=== PATIENT | male | born 2000 | race Caucasian/White ===

== ENCOUNTER 2022-03-23 05:14 | Emergency (ER) | payer OTHER, SELFPAY ==
[2022-03-23 05:28] VITALS: BP 143/80; PULSE 85; RESP 18; TEMP 36.5; O2SAT 100
--- NOTE | 2022-03-23 05:35 | ED.MALEGU ---
HPI - Male Genitourinary General Chief complaint: Urogenital-Male Stated complaint: testicular pain Time Seen by Provider: 03/23/22 05:28 Source: patient History of Present Illness HPI Narrative: Patient presents with concern for swollen testicle. Patient ports he woke up this morning approximately 1 hour ago he went to use the restroom and he felt like there was liquid in his scrotum he had a difficult time pain he was concerned so he came to the ER on arrival to the ER he reports his symptoms have now completely resolved. He denies any pain throughout this episode any injury to the area at night any pain with urination denies any urethral discharge. Denies any nausea vomiting or diarrhea denies any fevers or chills. Related Data Allergies Allergy/AdvReac Type Severity Reaction Status Date / Time cephalexin Allergy Unknown rash Verified 02/26/22 11:33 varicella virus vaccine live Allergy Unknown Shingles Verified 02/26/22 11:33 orange dye Allergy Rash Uncoded 02/26/22 11:33 Review of Systems Review of Systems: CONSTITUTIONAL: Denies fever, chills, or sweats. EYES: Denies visual changes, redness, or discharge. ENT: Denies rhinorrhea, congestion, sore throat, or otalgia. CARDIOVASCULAR: Denies chest pain, palpitations, or edema. RESPIRATORY: Denies cough or dyspnea. GASTROINTESTINAL: Denies abdominal pain, nausea, vomiting, or diarrhea. GENITOURINARY: Denies dysuria or hematuria. SKIN: Denies rash or itching. MUSCULOSKELETAL: Denies back pain, joint pain, or myalgia. NEUROLOGIC: Denies headache, numbness, dizziness, or weakness. PSYCHIATRIC: Denies anxiety or depression. All systems reviewed & are unremarkable except as noted in HPI and below PMFSH Past Medical History Medical History Attention deficit disorder of childhood with hyperactivity Major depressive disorder, single episode, unspecified Social History Social History Smoking status: Current some day smoker Alcohol intake: never Substance use: current Substance use type: marijuana Exam Narrative: GENERAL: Well-appearing, well-nourished, and in no acute distress. HEAD: Normocephalic, atraumatic. EYES: PERRLA and EOMI. ENT: Nares clear, no rhinorrhea or epistaxis. Mucous membranes moist. NECK: Supple. No masses. 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 There is no urethral discharge no lymphadenopathy there is no external lesions ulcerations or pustules EXTREMITIES: Normal range of motion. No edema. SKIN: Warm, dry, no rash. NEURO: No focal deficits. Alert and oriented x3. PSYCH: Normal mood and affect. Course Vital Signs Vital signs: Vital Signs Temperature 36.5 C 03/23/22 05:28 Pulse Rate 85 03/23/22 05:28 Respiratory Rate 18 03/23/22 05:28 Blood Pressure 143/80 H 03/23/22 05:28 Pulse Oximetry 100 03/23/22 05:28 Oxygen Delivery Room Air 03/23/22 05:28 Temperature 36.5 C 03/23/22 05:28 Pulse Rate 85 03/23/22 05:28 Respiratory Rate 18 03/23/22 05:28 Blood Pressure 143/80 H 03/23/22 05:28 Pulse Oximetry 100 03/23/22 05:28 Oxygen Delivery Room Air 03/23/22 05:28 MDM - Male Genitourinary MDM Narrative Medical decision making narrative: H&P as above, vss, pt looks clinically well, exam without any pain or ulcerations or swelling,l labs/img considered, symptomatic relief available as needed, on reevaluation pt continues to looks clinically well. I discussed possible ultrasounds however given patient's complete resolution of symptoms without intervention it is unlikely to have any clinically significant findings. Given complete resolution of symptoms patient was comfortable without further imaging or work-up he would lik
== END 2022-03-23 05:57 | disposition home or self-care (01) ==
PROVIDERS: Emergency Provider Emergency Medicine; PCP Family Medicine
DX: N50.89 Other specified disorders of the male genital organs (principal); F17.200 Nicotine dependence, unspecified, uncomplicated; F98.8 Other specified behavioral and emotional disorders with onset usually occurring in childhood and adolescence; F32.9 Major depressive disorder, single episode, unspecified
CPT/HCPCS: 99281

== ENCOUNTER 2022-10-15 12:30 | Outpatient (RCR) | payer OTHER, SELFPAY ==
--- NOTE | 2022-10-01 14:26 | PTOPEVAL1 ---
Assessment and note entered by Ana Feliciano DPT Evaluation Information Assessment Status Evaluation Subjective Information Patient reports L sided back pain, has gradually increased over at least a year. Highest pain 2/10 recently and lowest 0/10. Reports some tingling as well. No radiation down leg. Pain increases with prolonged sitting and prolonged standing while at work. Unsure if appt scheduled with referring MD. Reported Pain Level Pain Score 2: Self Report Assessment PT Clinical Summary The patient is presenting to skilled therapy with a history of progressing low back pain. He presents with significant postural impairments, decreased LE strength and flexibility and range of motion impairments which are contributing to his pain with prolonged sitting and standing. He will benefit from skilled therapy to address these impairments and safely decrease pain and return to prior level. Plan of Care Interventions Electrical Stimulation,Hot Pack/Cold Pack,Manual Therapy,Neuro Re-education,Patient/Caregiver Education,Therapeutic Activities,Therapeutic Exercise,Self-Care/Home Management PT Services Indicated Yes Treatment Frequency and 1-2 times a week for 4 weeks Duration These treatments will address the objective and functional deficits as defined above. The patient will be advanced safely and appropriately in order for the patient to progress towards his/her prior level of function. Additional exercises will be introduced and as well as a comprehensive home exercise program upon discharge, if needed, ?to ensure carryover of functional gains achieved in the clinic. This treatment plan has been reviewed and agreement upon by the patient.
--- NOTE | 2022-12-20 10:18 | PTOPDC ---
Assessment and note entered by Ana Feliciano DPT Evaluation Information Assessment Status Discharge - Pt Not Present Subjective Information Assessment PT Clinical Summary Patient has not been seen in therapy since October. He will be discharged this date and would need a new order to resume therapy in the future. Plan of Care PT Services Indicated
== END 2022-12-20 10:23 | disposition home or self-care (01) ==
LOC: ANHGOSHPT 12:30
PROVIDERS: PCP Family Medicine; Visit Provider Nurse Practitioner
DX: M54.9 Dorsalgia, unspecified (principal)
CPT/HCPCS: 97110; 97112; 97161; 97530

== ENCOUNTER 2022-12-09 16:52 | Emergency (ER) | payer OTHER, SELFPAY ==
[2022-12-09 16:57] VITALS: BP 123/56; PULSE 97; RESP 16; TEMP 37.2; O2SAT 97
--- NOTE | 2022-12-09 17:23 | ED.NAVMDI ---
HPI - Nausea/Vomiting/Diarrhea General Chief complaint: Nausea/Vomiting/Diarrhea Stated complaint: abd pain/vomiting/diarrhea Time Seen by Provider: 12/09/22 17:24 Source: patient and RN notes reviewed Mode of arrival: ambulatory Limitations: no limitations History of Present Illness HPI Narrative: 22-year-old male presents with concern for returning to work after having nausea and diarrhea yesterday. He denies vomiting or abdominal pain. He denies any symptoms today. He denies sore throat, headache, nasal congestion, rhinorrhea. He has not had diarrhea today MD elicited complaint: nausea and diarrhea Related Data Allergies Allergy/AdvReac Type Severity Reaction Status Date / Time cephalexin Allergy Unknown rash Verified 12/09/22 17:11 varicella virus vaccine live Allergy Unknown Shingles Verified 12/09/22 17:11 orange dye Allergy Rash Uncoded 12/09/22 17:11 Review of Systems Review of Systems: CONSTITUTIONAL: Denies malaise, chills, sweats, or fever. ENT: Denies rhinorrhea, congestion, sinus pain, otalgia or sore throat. CARDIOVASCULAR: Denies chest pain, palpitations, or edema. RESPIRATORY: Denies cough or dyspnea. GASTROINTESTINAL: Denies abdominal pain, nausea, vomiting, diarrhea, bloody, or mucous stools. GENITOURINARY: Denies dysuria or hematuria. MUSCULOSKELETAL: Denies myalgia. NEUROLOGIC: Denies headache. All systems reviewed & are unremarkable except as noted in HPI and below PMFSH Past Medical History Medical History Attention deficit disorder of childhood with hyperactivity Major depressive disorder, single episode, unspecified Social History Social History Smoking status: Current some day smoker Alcohol intake: never Substance use: current Substance use type: marijuana Lack of Transportation: No Lack of Food: Never True Current Housing: I Have Housing Concerned About Future Housing: YES Difficulty Paying Gas/Electric Bills: YES Difficulty Paying for Meds: No Currently Unemployed: No Education: High School Diploma/GED Difficulty w/ Childcare or Family Care: No Living arrangements: with family Occupation/Education: occupation Gender identity (if verbalized by the patient): Male Agree to blood products: Yes Comments At time of signature, agree with nursing past medical, surgical, social and family history. There is no relevant family history pertinent to the presenting complaint Exam Narrative: GENERAL: Well-appearing, well-nourished, and in no acute distress. HEAD: Normocephalic, atraumatic. EYES: PERRLA, conjunctivae clear, and EOMI. ENT: Nares clear, turbinates pink, no rhinorrhea or epistaxis. Mucous membranes moist. Oropharynx without edema, erythema, or lesions. Tonsils not enlarged and without exudate. NECK: Supple. No lymphadenopathy CHEST: Speaks in full sentences. No respiratory distress. HEART: Regular rate and rhythm. ABDOMEN: Soft, flat, nondistended, nontender. No guarding, rebound tenderness, or rigidity. No pulsatile masses. Bowel sounds present in all four quadrants. No organomegaly.. No periumbilical tenderness. No Supra public tenderness or distension. SKIN: Warm, dry, no rash. NEURO: Alert and oriented x3. PSYCH: Normal mood and affect Course Course Emergency Course: Patient is aware of diagnosis, understands and agrees to treatment plan. Anticipatory guidance given. Patient agrees to follow-up as directed and is aware of reasons to seek care at the emergency department. Portions of this record may have been created with voice recognition software Level of Care: Express Care Visit Vital Signs Vital signs: Vital Signs Temperature 98.9 F 12/09/22 16:57 Pulse Rate 97 12/09/22 16:57 Respiratory Rate 16 12/09/22 16:57 Blood Pressure 123/56 L 12/09/22 16:57 Pulse Oximetry 97 12/09/22 16:57 Oxygen Delivery Room Air
== END 2022-12-09 17:45 | disposition home or self-care (01) ==
PROVIDERS: Emergency Provider Nurse Practitioner; PCP Family Medicine
DX: R19.7 Diarrhea, unspecified (principal); F17.200 Nicotine dependence, unspecified, uncomplicated; F12.90 Cannabis use, unspecified, uncomplicated
CPT/HCPCS: 99211; G0463

== ENCOUNTER 2023-02-14 11:01 | Emergency (ER) | payer OTHER, SELFPAY ==
[2023-02-14 11:11] VITALS: BP 126/73; PULSE 97; RESP 16; TEMP 37.2; O2SAT 100
--- NOTE | 2023-02-14 11:15 | ED.EYEPROB ---
HPI - Eye Problem General Chief complaint: Eye Problems Stated complaint: Swelling on right eye lid Time Seen by Provider: 02/14/23 11:15 Source: patient Mode of arrival: ambulatory Limitations: no limitations History of Present Illness HPI Narrative: REBECA is a 22-year-old male patient presenting to the clinic today with complaints of right upper eyelid swelling and discomfort since this morning. Reports that he 1st noticed it this morning. Denies any eye drainage or visual changes. Related Data Home Medications Medication Instructions Recorded Confirmed fluoxetine 60 mg tablet 60 mg PO DAILY 02/14/23 02/14/23 Allergies Allergy/AdvReac Type Severity Reaction Status Date / Time cephalexin Allergy Unknown rash Verified 02/14/23 11:04 varicella virus vaccine live Allergy Unknown Shingles Verified 02/14/23 11:04 orange dye Allergy Rash Uncoded 02/14/23 11:04 Review of Systems Review of Systems: Pertinent positives per HPI. Patient denies any fever, chills, rash, headache, visual changes, dizziness, cough, runny nose, sore throat, shortness of breath, chest pain, palpitations, nausea, vomiting, diarrhea, constipation, abdominal pain, or any urinary issues. PMFSH Past Medical History Medical History Attention deficit disorder of childhood with hyperactivity Major depressive disorder, single episode, unspecified Social History Social History Smoking status: Never smoker Second hand tobacco smoke exposure: No Additional smoking assessment comments: patient uses occasional marijuana Alcohol intake: never Substance use: current Substance use type: marijuana Lack of Transportation: No Lack of Food: Never True Current Housing: I Have Housing Concerned About Future Housing: YES Difficulty Paying Gas/Electric Bills: YES Difficulty Paying for Meds: No Currently Unemployed: No Education: High School Diploma/GED Difficulty w/ Childcare or Family Care: No Living arrangements: with family Occupation/Education: occupation Gender identity (if verbalized by the patient): Male Agree to blood products: Yes Comments At the time of my signature, I reviewed and agree with the nursing past medical, surgical, social, and family history. There is no relevant family history pertinent to the patient complaint. Exam Narrative: General: Well-developed, well nourished, in no apparent distress Head: Normocephalic, atraumatic Eyes: Pupils equally round and reactive to light bilaterally, EOM intact, sclera and conjunctive clear, no discharge, left lids normal, right upper eyelid swollen with redness to the inner eyelid-no obvious pustule-suspicious for stye developing Ears: TMs intact and clear, ear canals clear, no drainage, grossly hearing normal. Nose: Nares patent, no discharge, no inflammation, no sinus tenderness. Mouth: Oropharynx without lesions or masses, good dentition, MMM. Neck: Supple, trachea midline, no enlargement of anterior or posterior cervical nodes, no thyroid masses or goiter palpable. Cardio: Regular rate and rhythm, s1 and s2 normal, no murmur appreciated. Resp: Clear to auscultation bilaterally anteriorly and posteriorly, no rhonchi, rales, wheezing or rubs Course Course Emergency Course: Portions of this record may have been created with voice recognition software. Level of Care: Express Care Visit Vital Signs Vital signs: Vital Signs Temperature 37.2 C 02/14/23 11:11 Pulse Rate 97 02/14/23 11:11 Respiratory Rate 16 02/14/23 11:11 Blood Pressure 126/73 02/14/23 11:11 Pulse Oximetry 100 02/14/23 11:11 Oxygen Delivery Room Air 02/14/23 11:11 Temperature 37.2 C 02/14/23 11:11 Pulse Rate 97 02/14/23 11:11 Respiratory Rate 16 02/14/23 11:11 Blood Pressure 126/73 02/14/23 11:11 Pulse Oximetry 100 02/14/23 11
== END 2023-02-14 11:20 | disposition home or self-care (01) ==
PROVIDERS: Emergency Provider Nurse Practitioner Family; PCP Family Medicine
DX: H00.021 Hordeolum internum right upper eyelid (principal); F12.90 Cannabis use, unspecified, uncomplicated; F32.9 Major depressive disorder, single episode, unspecified
CPT/HCPCS: 99213; G0463

== ENCOUNTER 2023-06-13 11:49 | Emergency (ER) | payer OTHER, SELFPAY ==
[2023-06-13 12:13] VITALS: BP 140/88; PULSE 97; RESP 16; TEMP 36.9; O2SAT 100
--- NOTE | 2023-06-13 12:29 | ED.EYEPROB ---
HPI - Eye Problem General Chief complaint: Eye Problems Stated complaint: right eye issue Time Seen by Provider: 06/13/23 12:32 Source: patient, RN notes reviewed and old records reviewed Mode of arrival: ambulatory Limitations: no limitations History of Present Illness HPI Narrative: 23-year-old male presents to the [facility] with complaints of feeling like the low the eyebrow, supraorbital notch area medial eye feels swollen. No erythema or swelling noted on exam. Denies any blurry vision or change in vision. No issues with the eyelids. Patient reports and per medical record he was here in February and diagnosed with a stye. Patient reports that moves from eye to eye. Denies it completely going away, sensation of swelling to the eye area States that he was using the eyedrops that he was prescribed for a couple months ago. Wearing glasses. No trauma to the eye. No blurry vision or change in vision Vision 20/15 bilateral, left and right Onset (ago): month(s) (4) Related Data Home Medications Medication Instructions Recorded Confirmed fluoxetine 60 mg tablet mg 06/13/23 Allergies Allergy/AdvReac Type Severity Reaction Status Date / Time cephalexin Allergy Unknown rash Verified 06/13/23 12:21 varicella virus vaccine live Allergy Unknown Shingles Verified 06/13/23 12:21 orange dye Allergy Rash Uncoded 06/13/23 12:21 Review of Systems Review of Systems: All systems reviewed & are unremarkable except as noted in HPI and below Constitutional: Constitutional: Reports no additional constitutional complaints Eyes: Eyes: Reports as per HPI ENT: Reports system reviewed and no additional complaints, except as documented Cardiovascular: Cardiovascular: Reports no additional cardiovascular complaints, Denies chest pain and Denies dyspnea Respiratory: Respiratory: Reports no additional respiratory complaints, Denies chest congestion, Denies cough and Denies dyspnea Gastrointestinal: Gastrointestinal: Reports no additional gastrointestinal complaints, Denies abdominal pain, Denies nausea and Denies vomiting Musculoskeletal: Musculoskeletal: Reports no additional musculoskeletal complaints Integumentary/Breasts: Skin/Breast: Reports system reviewed and no additional complaints, except as docu Neurologic: Reports system reviewed and no additional complaints, except as documented Psychiatric: Psychiatric: Reports no additional psychiatric complaints Allergic/Immunologic: Allergic/Immunologic: Reports no additional allergic/immunologic complaints PMFSH Past Medical History Medical History Attention deficit disorder of childhood with hyperactivity Major depressive disorder, single episode, unspecified Social History Social History Smoking status: Never smoker Second hand tobacco smoke exposure: No Additional smoking assessment comments: patient uses occasional marijuana Alcohol intake: never Substance use: current Substance use type: marijuana Lack of Transportation: No Lack of Food: Never True Current Housing: I Have Housing Concerned About Future Housing: YES Difficulty Paying Gas/Electric Bills: YES Difficulty Paying for Meds: No Currently Unemployed: No Education: High School Diploma/GED Difficulty w/ Childcare or Family Care: No Living arrangements: with family Occupation/Education: occupation Gender identity (if verbalized by the patient): Male Agree to blood products: Yes Comments At the time of my signature, I reviewed and agree with the nursing past medical, surgical, social, and family history. There is no relevant family history pertinent to the patient complaint. Exam Const: General: cooperative, healthy appearing, comfortable, no acute distress, well developed, alert and well nourished Nutritional Appearance: well nourished Orientation/consciousness: patient
== END 2023-06-13 12:54 | disposition home or self-care (01) ==
PROVIDERS: Emergency Provider Nurse Practitioner; PCP Family Medicine
DX: R22.0 Localized swelling, mass and lump, head (principal); Z79.899 Other long term (current) drug therapy
CPT/HCPCS: 99213; G0463